=== PATIENT | male | born 1985 ===

== ENCOUNTER → 2025-05-23 08:03 | Outpatient (CLI) | payer OTHER, SELFPAY ==
--- NOTE | 2025-05-23 08:07 | DI.ECHO.S_ITS ---
Interior +---------+ Hospital : : [address] : : [place] : : [id number] : : Phone: [phone] Echocardiogram Report + + :Name: LEROY POWERS Study Date: 05/23/2025 Height: 67.5 in: :[facility] ReadingLocation: Weight: 175 lb : : Gender: Male BSA: 1.9 m2 : :: 1985 Age: 40 yrs BP: 118/71 mmHg: :Reason For Study: SYSTOLIC MURMUR : :Ordering Physician: KODY MADDEN : : Performed By: Claudia Ceron : :Referring: KODY MADDEN MD : + + Interpretation Summary 1. The left ventricular contractility is normal. Estimated ejection fraction is greater than 55% with no segmental wall motion abnormalities. No LVH. Normal diastolic function. 2. The right ventricular contractility is normal. 3. The left atrium is on the upper limits of normal. All other cardiac chambers are of normal size. LVEDD is 5.1 cm. 4. Mild prolapse of the posterior mitral valve leaflet noted. There is moderate to severe mitral regurgitation. 5. Mild pulmonic insufficiency. 6. No obvious intracardiac shunts. 7. No obvious intracardiac masses or thrombi. 8. No hemodynamically significant pericardial effusion. 9. Low right-sided filling pressures. Conclusion: Normal biventricular function with prolapse of the posterior mitral valve leaflet with concurrent moderate to severe mitral regurgitation. Procedure: A two-dimensional transthoracic echocardiogram with color flow and Doppler was performed. The study quality was technically adequate. There is no prior echocardiogram noted for this patient. The patient was in sinus rhythm with heart rates between 57-70 bpm during the exam. Left Ventricle: The left ventricle is normal in size and wall thickness. The ejection fraction is estimated to be 55-60%. Diastolic parameters suggest probable normal left ventricular diastolic function and normal filling pressures. Right Ventricle: The right ventricle is normal size. The right ventricular systolic function is normal. Atria: Borderline left atrial enlargement. Right atrial size is normal. There is no Doppler evidence for an interatrial shunt. Mitral Valve: There is prolapse of the posterior mitral valve leaflet(s). There is moderate to severe mitral regurgitation. The mitral regurgitant jet is anteriorly directed, which is consistent with posterior leaflet pathology. Aortic Valve: The aortic valve is trileaflet. The aortic valve opens well. There is no aortic valve stenosis. There is trace aortic regurgitation. Tricuspid Valve: The tricuspid valve leaflets are thin and pliable. There is trace tricuspid regurgitation. Multiple jets. The right ventricular systolic pressure is estimated to be at least 21 mmHg based on an estimated right atrial pressure of 3 mm Hg. Pulmonic Valve: The pulmonic valve leaflets are thin and pliable; valve motion is normal. There is mild pulmonic regurgitation. Great Vessels: The aortic root is normal size. The dimensions of the ascending aorta are normal. The IVC is of normal diameter and collapses greater than 50% with a sniff. This suggests a low right atrial pressure of 3 mm Hg. Pericardium/ Pleura There is no pericardial effusion. There is no pleural effusion. MMode/2D Measurements & Calculations LVIDd: 5.1 cm LVOT diam: 2.1 cm LVIDs: 3.4 cm Ao root diam: 3.5 cm FS: 34.6 % asc Aorta Diam: 2.7 cm IVSd: 0.68 cm Ao Arch Diam (Prox Trans): 2.8 cm LVPWd: 0.76 cm LV pacheco. diameter/BSA (cm/m^2): 2.7 LV sys. diameter/BSA (cm/m^2): 1.8 LA A2 area: 20.2 cm2 RA long axis: 5.3 cm LA A4 area: 18.6 cm2 RA area: 14.9 cm2 LA length (vol): 4.9 cm RA vol: 35.7 ml LA vol: 64.6 ml RA : 18.6 ml/m2 LA vol index: 33.6 ml/m2 IVC diam: 1.3 cm RVD1 (basal): 3.8 cm RVD2 (mid): 3.4 cm TAPSE: 2.3 cm Doppler Measurements & Calculations Ao V2 max: 120.8 cm/sec LVOT Max Ghulam: 104.4 cm/sec Ao V2 mean: 83.8 cm/sec LV V1 max P.4 mmHg Ao max P.8 mmHg LV V1 VTI: 19.3 cm Ao mean P.1 mmHg ALEJANDRO(I,D): 2.9 cm2 Ao V2 VTI: 23.7 cm ALEJANDRO(V,D): 3.1 cm2 sev ratio: 0.81 ALEJANDRO indexed to BSA (cm^2/m^2): 1.5 MV E max ghulam: 86.6 cm/sec TR max ghulam: 209.5 cm/sec MV A max ghulam: 43.8 cm/sec TR max P.6 mmHg MV E/A: 2.0 PA V2 max: 98.3 cm/sec Med Peak E' Ghulam: 9.6 cm/sec PA V2 mean: 61.9 cm/sec E/E' med: 9.0 PA mean P.8 mmHg Lat Peak E' Ghulam: 12.4 cm/sec PA pr(Accel): 30.8 mmHg E/E' lat: 7.0 E/e' average: 8.0 MV dec time: 0.16 sec SV(LVOT): 69.4 ml Reading Physician:ALLAN
== END ==
DX: I34.0 Nonrheumatic mitral (valve) insufficiency (principal); I37.1 Nonrheumatic pulmonary valve insufficiency; R01.1 Cardiac murmur, unspecified
CPT/HCPCS: 93306

== ENCOUNTER → 2025-09-29 12:30 | Outpatient (CLI) | payer OTHER, SELFPAY ==
--- NOTE | 2025-09-29 12:31 | DI.MRI.S_ITS ---
PROCEDURE: MR WRIST LT WO CON INDICATIONS: LT WRIST PAIN TECHNIQUE: Noncontrast coronal proton density fast spin echo and T2 fast spin echo with fat saturation; coronal 3-D gradient echo, axial T1 spin echo and T2 fast spin echo with fat saturation, sagittal T1 spin echo through the wrist. COMPARISON: None. FINDINGS: Image quality: Diagnostic. Osseous structures and articular cartilage: No fracture. No suspicious marrow replacing process. Intact articular cartilage without high-grade articular cartilage defect. Normal alignment. No dislocation. Muscles and tendons: Volar subluxation of the extensor carpi ulnaris with mild tendinosis and tenosynovitis. Otherwise the extensor tendons are intact without significant tendinosis or tenosynovitis. Intact flexor tendons without tendinosis or tenosynovitis. No tear. Ligaments: Mild scarring of the volar scapholunate ligament without acute tear. Intact membranous and dorsal bands of the scapholunate ligament. Intact lunotriquetral ligament. Intact extrinsic wrist ligaments in the absence of intra articular contrast. TFCC: Attenuation of the central articular disc of the TFCC (series 3, image 7 without full-thickness perforation or tear. Intact styloid and foveal laminae a. Increased signal within the meniscus homologue. Miscellaneous: Normal median nerve. Normal contents of Guyon's canal. No ganglion cyst. IMPRESSION: 1. Extensor carpi ulnaris volar subluxation from the ulnar groove concerning for a subsheath tear. Recommend correlation with physical exam findings. 2. Mild tendinosis and tenosynovitis of extensor carpi ulnaris. No high-grade tendon tear. 3. Thinning and wear of the central talar disc of the TFCC without acute tear. Dictated by: Atilio Salcido M.D. on 09/29/2025 at 14:27 Approved by: Atilio Salcido M.D. on 09/29/2025 at 14:56
== END ==
DX: S63.072A Subluxation of distal end of left ulna, initial encounter (principal); M65.832 Other synovitis and tenosynovitis, left forearm
CPT/HCPCS: 73221